=== PATIENT | female | born 1990 | race Caucasian/White ===

== ENCOUNTER → 2017-05-08 08:35 | Outpatient (CLI) | payer OTHER, SELFPAY | PROVIDERS: Family Provider Nurse Practitioner; PCP Nurse Practitioner; Visit Provider Internal Medicine Medical Oncology | DX: D69.6 Thrombocytopenia, unspecified (principal) ==

== ENCOUNTER → 2018-02-18 21:00 | Outpatient (CLI) | payer OTHER, SELFPAY ==
[2018-02-18 21:13] LABS: Absolute Lymphocyte Count 2.36 X10^3/ul (0.83-4.51); Absolute Neutrophil Count 2.2 X10^3/uL (2.0-7.7); Eosinophil# 0.04 X10^3/uL; Eosinophils% 0.8 % (0-5); Hematocrit 43.6 % (37-47); Hemoglobin 14.6 g/dl (12.0-15.0); Lymphocyte # 2.36 X10^3/ul (4.0); Lymphocyte % 47.4 % (19-41); Mean Corp Hgb Conc 33.5 g/gl (32-36); Mean Corpuscular Hgb 27.7 pg (27.0-32.0); Mean Corpuscular Volume 82.6 fL (81-99); Mean Platelet Vol. 10.1 fl (6.2-12.0); Monocyte# 0.37 X10^3/uL; Monocyte% 7.4 % (0-10); Neutrophil % 44.2 % (47-70); POSITIVE COUNT NO; POSITIVE DIFFERENTIAL NO; POSITIVE MORPHOLOGY NO; Platelet Count 226 K/mm3 (150-450); RBC Distribution Width CV 12.6 % (11.6-14.6); RBC Distribution Width SD 37.6 fl (35.1-43.9); Red Blood Count 5.28 M/mm3 (4.2-5.4)
[2018-02-18 21:34] LABS: ALB/GLOB Ratio 1.1 RATIO (0.9-2.4); AST(SGOT) 12 U/L (15-37); Alanine Aminotransfer ALT/SGPT 23 U/L (13-56); Albumin, Serum 4.3 g/dL (3.2-5.0); Alkaline Phosphatase 100 U/L (45-117); Anion Gap 8 (5-15); BUN 14 mg/dL (7-18); BUN/Creat Ratio 18.2 RATIO (10-20); Calcium,Total 9.1 mg/dL (8.5-10.1); Chloride 104 mmol/L (98-107); Cholesterol 220 mg/dL (200); Creatinine, Serum 0.77 mg/dL (0.55-1.02); EST Glomerular Filtration Rate 94 mL/min (>60); Est Glom Filt Rate - Afr Amer 114 mL/min (>60); Free T3 3.3 pg/mL (2.18-3.98); Globulin 3.8 g/dL (2.2-4.2); Glucose 83 mg/dL (74-106); High Density Lipoprotein 39 mg/dL; Potassium 4.6 mmol/L (3.5-5.1); Protein, Total 8.1 g/dL (6.4-8.2); Sodium Level 138 mmol/L (136-145); T4 Free Direct 1.01 ng/dL (0.76-1.46); Thyroid Stim Hormone (TSH) 1.35 uIU/mL (0.358-3.74); Triglycerides 362 mg/dL; Very Low Density Lipoprotein 72 mg/dL (5-40)
== END ==
PROVIDERS: Visit Provider Nurse Practitioner
DX: D69.3 Immune thrombocytopenic purpura (principal); L93.0 Discoid lupus erythematosus
CPT/HCPCS: 80053; 80061; 84439; 84443; 84481; 85025

== ENCOUNTER → 2020-03-14 08:28 | Outpatient (CLI) | payer OTHER, SELFPAY ==
[2020-03-10 20:05] VITALS: BMI 32.9
[2020-03-14 09:30] LABS: Free T3 3.2 pg/mL (2.18-3.98); Magnesium 2.3 mg/dL (1.6-2.6); T4 Free Direct 1.07 ng/dL (0.76-1.46); Thyroid Stim Hormone (TSH) 0.86 uIU/mL (0.358-3.74)
[2020-03-16 14:09] LABS: ANTINUCLEAR ANTIBODIES DIRECT Positive (Negative); Anti-Centromere B Ab <0.2 AI (0.0-0.9); Anti-Chromatin 0.3 AI (0.0-0.9); Anti-Jo <0.2 AI (0.0-0.9); Anti-Scleroderma-70 AB <0.2 AI (0.0-0.9); RNP Ab 0.5 AI (0.0-0.9); SJOGREN'S Anti-SS-A test < 0.2 AI (0.0-0.9); SJOGREN'S Anti-SS-B test < 0.2 AI (0.0-0.9); Smith Ab 0.2 AI (0.0-0.9); Vitamin D 1,25-Dihydroxy 54.7 pg/mL (19.9-79.3)
[2020-03-16 14:38] LABS: Anti-dsDNA Ab 8 IU/mL (0-9)
== END ==
PROVIDERS: PCP Nurse Practitioner; Referring Provider Nurse Practitioner; Visit Provider Nurse Practitioner
DX: L93.0 Discoid lupus erythematosus (principal); D69.3 Immune thrombocytopenic purpura
CPT/HCPCS: 36415; 82652; 83735; 84439; 84443; 84481; 86038; 86225; 86235

== ENCOUNTER → 2024-04-16 | Outpatient (CLI) | payer OTHER, SELFPAY ==
[2024-04-16 07:46] LABS: Absolute Lymphocyte Count 2.78 X10^3/uL (0.83-4.51); Absolute Neutrophil Count 3.7 X10^3/uL (2.0-7.7); Basophil# 0.02 X10^3/uL; Basophil% 0.3 % (0-1); Eosinophil# 0.01 X10^3/uL; Eosinophils% 0.1 % (0-5); Hematocrit 41.7 % (37-47); Hemoglobin 13.2 g/dL (12.0-15.0); Lymphocyte # 2.78 X10^3/ul (0.83-4.51); Lymphocyte % 38.5 % (19-41); Mean Corp Hgb Conc 31.7 g/dL (32-36); Mean Corpuscular Hgb 26.3 pg (27.0-32.0); Mean Corpuscular Volume 83.2 fL (81-99); Mean Platelet Vol. 9.3 fl (6.2-12.0); Monocyte# 0.62 X10^3/uL; Monocyte% 8.6 % (0-10); NRBC Flagged by Analyzer 0 % (0-5); Neutrophil # 3.72 X10^3/uL (2.7-7.7); Neutrophil % 51.5 % (47-70); Platelet Count 238 K/mm3 (150-450); RBC Distribution Width CV 13.4 % (11.6-14.6); RBC Distribution Width SD 40.2 fl (35.1-43.9); Red Blood Count 5.01 M/mm3 (4.2-5.4); White Blood Count 7.2 K/mm3 (4.4-11.0)
[2024-04-16 12:55] LABS: AST(SGOT) 15 U/L (15-37); Alanine Aminotransfer ALT/SGPT 25 U/L (13-56); Albumin, Serum 3.9 g/dL (3.2-5.0); Alkaline Phosphatase 94 U/L (45-117); Anion Gap 8 (5-15); BUN 12 mg/dL (7-18); BUN/Creat Ratio 16.4 RATIO (10-20); Chloride 109 mmol/L (98-107); Creatinine, Serum 0.73 mg/dL (0.55-1.02); EST Glomerular Filtration Rate 96 mL/min (>60); Est Glom Filt Rate - Afr Amer 116 mL/min (>60); Globulin 3.8 g/dL (2.2-4.2); Glucose 100 mg/dL (74-106); Potassium 4.4 mmol/L (3.5-5.1); Protein, Total 7.7 g/dL (6.4-8.2); Rheumatoid Factor < 10.0 IU/mL (<15); Sodium Level 140 mmol/L (136-145); Thyroid Stim Hormone (TSH) 0.823 uIU/mL (0.358-3.740)
[2024-04-19 12:08] LABS: Anti-Centromere B Ab <0.2 AI (0.0-0.9); Anti-Chromatin 0.3 AI (0.0-0.9); Anti-Jo <0.2 AI (0.0-0.9); Anti-Scleroderma-70 AB <0.2 AI (0.0-0.9); Anti-dsDNA Ab 5 IU/mL (0-9); RNP Ab 0.5 AI (0.0-0.9); SJOGREN'S Anti-SS-A test < 0.2 AI (0.0-0.9); SJOGREN'S Anti-SS-B test < 0.2 AI (0.0-0.9); Smith Ab <0.2 AI (0.0-0.9)
== END | disposition home or self-care (01) ==
LOC: LAB 07:24
PROVIDERS: PCP Nurse Practitioner; Referring Provider Nurse Practitioner; Visit Provider Nurse Practitioner
DX: I73.00 Raynaud's syndrome without gangrene (principal); M32.14 Glomerular disease in systemic lupus erythematosus
CPT/HCPCS: 80053; 84443; 85025; 86225; 86235; 86431

== ENCOUNTER 2024-08-18 09:30 | Outpatient (RCR) | payer OTHER, SELFPAY ==
--- NOTE | 2024-07-21 17:02 | HP.PTEVAL ---
Patient's Visit Information Visit Information Visit Information: RC DICKERSON is a 34 year old F referred to Physical Therapy by Dr. Aleksandr Araujo DPM with a diagnosis of R ATFL sprain. Date of Evaluation: 07/21/24 Physical Therapist: Wilder Gibbons DPT, OCS, CSCS Visit Plan Frequency: 2x /Week Duration: 4-6 Weeks Plan: 2x/week for 3-6 weeks: IE HEP with pics: 4 way ankle with OTB 3x10 adn SLS 2 min each. Brace with ambulation and ice if sore. Please treat with: CFM R ATFL, progression of achilles streetch and WB proprioception and strength to HEP with pics for R ankle and B ankle. ice massage as needed. STM rollout gastroc and soleus and PF STM R. Subjective Subjective: R ankle pain. Starting last April to doctor but pain prior for over a year. Worse on vacation in March walking on beach. Then turned ankle in April turned R ankle in [place]. Lots of walking and tendonitis and PFitis possible. Stepped off curb and rolled it the next day and walked on it for 4 days. 9/10 Laterally at time. Put in boot when she got back. had night splint which helped then doctor put her in boot for 6 weeks which helped tremendously. That came off early June 3 weeks ago. Then brace for two weeks. Saw doctor last Friday and it was hurting again b/c she was using it more. Gave HEP of DF stretch and ankle ROM. Exercises helped a little bit and gave voltarin to use. Pain this week mostly 1/10, worse if on it alot makes it worse. [facility] [place] to hospital can cause some pain. Walking dog in [employer] class can hurt at 4/10. That pain lingers a little bit at times. Still has some heel pain. Sleep is OK. Work is normal but would not stand on chair. Basic ADLs a polly are good. No hobbies this time of year. Stairs at home are not great to basement, avoided them when in boot. Pain R lateral ankle: Pain Intensity (Out of 10): 2 Pain Intensity Range: 0 and 5 Comment: am and pm worst Objective Objective: Walks in today with brace on R ankle without antalgia. 2/10 pain. Able to toe walk adn heel walk with slight discomfort in lateral ankle and R heel. + talar tilt on R, hypermobile throughout B ankles and feet adn hyperextension noticed in knees B. AROM R khoa 5 DF vs 7 on L, PF 60 R and L, eversion 22 B, inversion 44 B. Pain with R inversion in lateral ankle. Tender to palpation R ATFL area, not really into peroneals, slight tenderness insertion achilles R and into medial plantar surface on clacaneus. strength is 4/5 R ankle inv and eversion with pain on eversion and eversion R lateral, 4+ Df and 4- PF R with pain with heel raise. Steps are recirpocal without rail but painful R lateral with descending onto R and pushing up off right. sensation B LE WNL to gross light touch. Arch is unremarkable today. SLS evc 10+ seconds L and R but much more sway on R. Balance/Special Test Scores Lower Extremity Functional Score: 59 Goals Goal 1:: walk community without brace without pain Goal Time Frame: 4-6 Weeks Goal 2:: I( appropriate HEP to limit future problems Goal Time Frame: 4-6 Weeks Goal 3:: steps reciprocal without discomfort. Goal Time Frame: 4-6 Weeks Goal 4:: LEFS score 65 Goal Time Frame: 4-6 Weeks Rehabilitation Potential Physical Therapy Diagnosis: Pain and weakness and diminished proprioception in R ankle causing discomfort in function. Rehabilitation Potential: Fair Anticipated Interventions Patient/Client Instruction: Educate patient on: Condition and Plan of Care For the Purpose of:: To decrease pain, To decrease swelling/inflammation, To improve nutrient delivery to tissue and To improve muscle performance and motor function Therapeutic Exercise to Include: Strength training, Balance training and Gait and locomotor training Comment: proprioception For the Purpose of:: To decrease pain, To improve nutrient delivery to tissue, To improve muscle performance and motor function, To increase tolerance to activity/condition/position, To improve gait and locomotor functions and To improve health of tissue Manual Therapy Techniques to Include: Mobilization and Soft tissue mobilization For the Purpose of:: To decrease swelling/inflammation, To increase ROM, To improve nutrient delivery to tissue, To improve muscle performance and motor function, To increase tolerance to activity/condition/position and To improve gait and locomotor functions Cryotherapy (ice pack, ice massage): Yes For the Purpose of:: To decrease swelling/inflammation Text: Thank you for the opportunity to evaluate your patient. For Medicare and Medicare HMO plans, please review the plan of care and approve it. It will need to be FAXED BACK to us at [phone] for Medicare purposes. For Medicare only, by signing this I certify the plan of care. Please let me know if there are questions or concerns regarding this plan of care. Physician Signature: Date:
--- NOTE | 2024-08-18 09:50 | HP.PTDCSUM ---
Discharge Summary D/C summary: It has been my pleasure to treat RC DICKERSON referred by Dr. Aleksandr Araujo DPM, with the diagnosis of R ATFL sprain for a total of 8 visit(s). Discharge Date: 08/18/24 Please see the following information for a summary of their discharge status. Subjective Subjective: Not wearing brace except for long walk days. If overdoes it will gt a little sore but not bad. This weel 1-08/02 with a lot of walking. Gone with sitting and sleeping well. Activities are normal. Wears ankle brace for [employer] class. To Doctor 08/30. HEP: daily. Pain R lateral ankle: Pain Intensity (Out of 10): 1 Overall Improvement % Improvement: 60 Objective Objective/Function: walking without antalgia today steps rciprocally today without pain or railing, using forefoot. AROM is symmetircal adn WFL with just some slight streteching discomfort laterally with inversion end range. strength is 4+/5 in all directions. Goals Goal 1:: walk community without brace without pain Goal Progress: Goal Met Goal 2:: I( appropriate HEP to limit future problems Goal Progress: Goal Met Goal 3:: steps reciprocal without discomfort. Goal Progress: Goal Met Goal 4:: LEFS score 65 Goal Progress: Goal Met Plan Plan: d/c to HEP D/C Information Discharge Comments: to doctor in two weeks. Doing well with slow steady improvement and will continue via HEP. d/c sentence: If there are questions or concerns regarding this patient's physical therapy, please feel free to call me at [phone]. Thank you for the referral of this patient. Sincerely, Wilder Gibbons, DPT, OCS, CSCS Balance/Gait/Functional tests Balance/Special Test Scores Lower Extremity Functional Score: 69 Improvement % Improvement: 60
== END 2024-08-18 19:00 | disposition home or self-care (01) ==
LOC: PT 09:30
PROVIDERS: PCP Nurse Practitioner; Referring Provider Podiatrist Foot & Ankle Surgery; Visit Provider Podiatrist Foot & Ankle Surgery
DX: S93.431D Sprain of tibiofibular ligament of right ankle, subsequent encounter (principal)
CPT/HCPCS: 97110; 97140; 97161; 97164; 97530

== ENCOUNTER → 2024-09-13 | Outpatient (CLI) | payer OTHER, SELFPAY ==
--- NOTE | 2024-09-13 14:00 | MRI_ITS ---
EXAM: Noncontrast MRI of the right ankle. CLINICAL HISTORY: Lateral right ankle/heel pain after injury April 2024. Swelling. COMPARISON: No relevant prior studies. TECHNIQUE: Multi planar, multisequence MRI images of the right ankle were obtained. FINDINGS: The distal Achilles tendon and proximal plantar fascia are intact. Marrow signal of the included osseous structures of the mid and hindfoot structures right foot are intact. Fat signal is maintained in the sinus tarsi. The distal tibia and fibula are intact. Ankle mortise is within normal limits. No osteochondral lesion of the talar dome. The major flexor and extensor tendons are intact. No soft tissue mass or drainable fluid collection of the right foot. The anterior and posterior distal tibial-fibular syndesmotic ligaments, the major components of the deltoid ligament, as well as the calcaneofibular ligament are intact. An intact anterior talofibular ligament is not clearly demonstrated. MRI/Lower Ext Joint Only (Routine) IMPRESSION: No acute bony abnormality of the right ankle. The major flexor and extensor tendons are intact. An intact anterior talofibular ligament is not clearly demonstrated and may be chronically torn. The remaining major ligamentous structures of the right ankle are intact. Reading Location: [facility]
== END | disposition home or self-care (01) ==
PROVIDERS: PCP Nurse Practitioner; Referring Provider Podiatrist Foot & Ankle Surgery; Visit Provider Podiatrist Foot & Ankle Surgery
DX: M79.671 Pain in right foot (principal); S93.491A Sprain of other ligament of right ankle, initial encounter
CPT/HCPCS: 73721

== ENCOUNTER → 2024-10-15 | Outpatient (CLI) | payer OTHER, SELFPAY ==
[2024-10-15 18:44] LABS: Hemoglobin A1c 5.3 % (<=5.6)
[2024-10-19 14:08] LABS: Anti-Centromere B Ab <0.2 AI (0.0-0.9); Anti-Chromatin <0.2 AI (0.0-0.9); Anti-Jo <0.2 AI (0.0-0.9); Anti-Scleroderma-70 AB <0.2 AI (0.0-0.9); Anti-dsDNA Ab 3 IU/mL (0-9); RNP Ab 0.5 AI (0.0-0.9); SJOGREN'S Anti-SS-A test 0.2 AI (0.0-0.9); SJOGREN'S Anti-SS-B test < 0.2 AI (0.0-0.9); Smith Ab <0.2 AI (0.0-0.9); Vitamin D 1,25-Dihydroxy 48.5 pg/mL (24.8-81.5)
== END | disposition home or self-care (01) ==
LOC: LAB 15:40
PROVIDERS: PCP Nurse Practitioner; Referring Provider Nurse Practitioner; Visit Provider Nurse Practitioner
DX: R73.9 Hyperglycemia, unspecified (principal); E55.9 Vitamin D deficiency, unspecified
CPT/HCPCS: 36415; 82652; 83036; 86225; 86235

== ENCOUNTER 2024-11-05 11:37 | Day surgery (SDC) | payer OTHER, SELFPAY ==
--- NOTE | 2024-10-22 12:09 | PAT.ANESEVAL ---
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 When Was Last Pacemaker Check QUESTION #4 FULL TEXT: You/Your Family Experience fever (hyperthermia) with Anesthesia Last Oral Intake Last Oral intake: Last Oral Intake NPO since Meds taken in AM with sips of water? 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 Female Yes 10/22/24 10:56 HX of Motion Sickness Yes 10/22/24 10:56 HX of N/V After Surgery No 10/22/24 10:56 Non-Smoker Yes 10/22/24 10:56 Duration of Surgery greater No 10/22/24 10:56 than 60 minutes Number of Risk Factors 3 10/22/24 10:56 PONV Score Moderate Risk 10/22/24 10:56 Height & Weight Height & Weight: Anesthesia: Height & Weight Height 5 ft 04/20/24 13:21 Respiratory Assessment Respiratory Assessment - battery installer: Respiratory Tract Infection Hx - battery installer Hx Respiratory Tract Infection No 10/22/24 10:56 STOP Sleep Apnea STOP Sleep Apnea - battery installer: STOP Sleep Apnea - battery installer Hx Hypertension No 10/22/24 10:56 Hx Sleep Apnea No 10/22/24 10:56 CPAP BIPAP Do you snore loudly (louder No 10/22/24 10:56 than talking or can be heard Do you often feel tired/ No 10/22/24 10:56 fatigued/ sleepy during daytime? Has anyone observed you stop No 10/22/24 10:56 breathing during sleep? STOP Results Negative 10/22/24 10:56 QUESTION #5 FULL TEXT : Do you snore loudly (louder than talking or can be heard through closed doors)? 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 Specify any problems Hx of Preganancy in last 3 No 10/22/24 10:56 Months Nurse Filling Out Transfusion JZOLLTERI 10/22/24 10:56 & Questions: Date: 10/22/24 10/22/24 10:56 Time: 10:58 10/22/24 10:56 Patient unable to answer at this time (ie. confused, unrespo /Reproduction History /Reproductive History - battery installer: /Reproductive Hx- battery installer Hx Now No 10/22/24 10:56 Gestational Age (in weeks): EDC: Hx Hx Para Hx Section SAB No 10/22/24 10:56 [facility] Medical History (Updated 10/22/24 @ 10:56 by Aleksandra Tavera) Wears contact lenses Wears glasses Non-smoker Hyperlipidemia Right foot sprain Right ankle sprain History of shingles r shoulder surgy 2-3 YEARS AGO low platelet count kidney biopsy or DX Raynauds disease Insomnia Lupus nephritis Systemic lupus Home Medications ?Medication ?Instructions ?Recorded ?Last Taken ?Type cholecalciferol (vitamin D3) 125 1 unit PO DAILY 07/11/15 Unknown History mcg (5,000 unit) capsule amitriptyline 10 mg tablet 10 mg PO QHS #90 tabs 04/19/24 Unknown Rx hydroxychloroquine 200 mg tablet 200 mg PO BID #135 tabs 04/19/24 Unknown Rx (Plaquenil) mycophenolate mofetil 500 mg 500 mg PO BID #180 tabs 04/19/24 Unknown Rx tablet (CellCept) rosuvastatin 5 mg tablet 5 mg PO DAILY #90 tabs 04/19/24 Unknown Rx cetirizine 10 mg tablet (24Hour 10 mg PO DAILY PRN allergy symptoms 10/22/24 Unknown History Allergy) Allergy/AdvReac Type Severity Reaction Status Date / Time amoxicillin (Amoxicillin) Allergy Rash Verified 10/22/24 10:48 omeprazole magnesium (From Allergy Angioedema Verified 10/22/24 10:48 Prilosec) Family History Other Asthma Cancer Diabetes Fatty liver Heart disease High cholesterol Hypertension Kidney disease Lung cancer Skin cancer Thyroid disorder Social History Smoking Status: Never smoker alcohol intake: current substance use type: does not use Audit: Pertinent Findings Pertinent Findings EKG Perinent findings: 07/18/2015. Sinus rhythm 79 bpm. First-degree AV block. Recommendation Anesthesia Recommendation Anesthesia recommendation: OPTIMIZED for anesthesia
[2024-11-05] VITALS (12 sets, daily range): BP systolic 108–132; BP diastolic 58–92; PULSE 74–102; RESP 16–20; TEMP 36.2–36.8; O2SAT 98–100; BMI 34.0
--- NOTE | 2024-11-05 12:18 | PRE.ANES_ITS ---
ASA Classification* ASA Classification ASA Classification: 2 Assessment & Plan Anesthesia* Anesthesia Assessment Anesthesia Assessment: Discussed sedation and/or anesthesia options, risks, benefits, and alternatives with patient/parents/legal guardian/POA. Questions invited. The patient/parents/legal guardian/POA seems to understand and agrees to proceed with anesthesia plan. Reviewed the physical assessment, medical history, allergy history and patient home medications list prior to surgery/procedure/anesthetic and documented any changes. Performed airway and anesthesia risk assessments. Anesthesia Type Anesthesia Type: General (keep patient warm, lube eyes) and Block Anesthesia Focused Assessment* Temperature: 98 F Pulse Rate: 78 Blood Pressure: 116/81 Respiratory Rate: 16 Pulse Ox: 98 Airway Assessment Mouth opens: >3 cm Mallampati Score: II Focused Labs Anesthesia Preop lab: CBC WBC 7.2 K/mm3 (4.4-11.0) 04/16/24 07:33 04/16/24 RBC 5.01 M/mm3 (4.2-5.4) 04/16/24 07:33 04/16/24 Hgb 13.2 g/dL (12.0-15.0) 04/16/24 07:33 04/16/24 Hct 41.7 % (37-47) 04/16/24 07:33 04/16/24 Plt Count 238 K/mm3 (150-450) 04/16/24 07:33 04/16/24 CHEMISTRY Potassium 4.4 mmol/L (3.5-5.1) 04/16/24 07:33 04/16/24 Sodium 140 mmol/L (136-145) 04/16/24 07:33 04/16/24 Magnesium 2.3 mg/dL (1.6-2.6) 03/14/20 08:35 03/14/20 Phosphorus 3.4 mg/dL (2.5-4.9) 04/16/24 07:32 04/16/24 BUN 12 mg/dL (7-18) 04/16/24 07:33 04/16/24 Creatinine 0.73 mg/dL (0.55-1.02) 04/16/24 07:33 04/16/24 Glucose 100 mg/dL (74-106) 04/16/24 07:33 04/16/24 TSH 0.823 uIU/mL (0.358-3.740) 04/16/24 07:33 1011/13 COAG PT 12.4 SECONDS (11.7-14.9) 04/14/14 08:08 Urine Test Negative Negative 07/18/15 06:15 07/18/15 Pre-Assessment Diagnosis/Proposed Procedure Planned Operative Procedure(s): (R) Right ankle harvest of calcaneal bone marrow aspirate concentrate, Arthroscopy with extensive debridement and Anesthesia History 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 When Was Last Pacemaker Check QUESTION #4 FULL TEXT: You/Your Family Experience fever (hyperthermia) with Anesthesia Last Oral Intake Last Oral intake: Last Oral Intake NPO since 06:00 11/05/24 12:06 Meds taken in AM with sips of Yes 11/05/24 12:06 water? 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 Female Yes 10/22/24 10:56 HX of Motion Sickness Yes 10/22/24 10:56 HX of N/V After Surgery No 10/22/24 10:56 Non-Smoker Yes 10/22/24 10:56 Duration of Surgery greater No 10/22/24 10:56 than 60 minutes Number of Risk Factors 3 10/22/24 10:56 PONV Score Moderate Risk 10/22/24 10:56 Height & Weight Height & Weight: Anesthesia: Height & Weight Height 5 ft 11/05/24 12:06 Weight: 79 kg 11/05/24 12:06 Body Mass Index (BMI) 34.0 11/05/24 12:06 Respiratory Assessment Respiratory Assessment - oil filters inspector: Respiratory Tract Infection Hx - oil filters inspector Hx Respiratory Tract Infection No 10/22/24 10:56 STOP Sleep Apnea STOP Sleep Apnea - oil filters inspector: STOP Sleep Apnea - oil filters inspector Hx Hypertension No 10/22/24 10:56 Hx Sleep Apnea No 10/22/24 10:56 CPAP BIPAP Do you snore loudly (louder No 10/22/24 10:56 than talking or can be heard Do you often feel tired/ No 10/22/24 10:56 fatigued/ sleepy during daytime? Has anyone observed you stop No 10/22/24 10:56 breathing during sleep? STOP Results Negative 10/22/24 10:56 QUESTION #5 FULL TEXT : Do you snore loudly (louder than talking or can be heard through closed doors)? 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 Specify any problems Hx of Preganancy in last 3 No 10/22/24 10:56 Months Nurse Filling Out Transfusion JZOLLTERI 10/22/24 10:56 & Questions: Date: 10/22/24 10/22/24 10:56 Time: 10:58 10/22/24 10:56 Patient unable to answer at this time (ie. confused, unrespo /Reproduction History /Reproductive History - oil filters inspector: /Reproductive Hx- oil filters inspector Hx Now No 10/22/24 10:56 Gestational Age (in weeks): EDC: Hx Hx Para Hx Section SAB No 10/22/24 10:56 Active Medications Active Medications: Current Medications Generic Name Dose Route Start Last Admin Trade Name Freq PRN Reason Stop Dose Admin Acetaminophen 1,000 mg 11/05/24 13:45 Acetaminophen 500 Mg Tablet PO 11/05/24 13:46 PREOP ONE Gabapentin 600 mg 11/05/24 13:45 Gabapentin 600 Mg Tablet PO 11/05/24 13:46 PREOP ONE Clindamycin Phosphate 900 mg in 50 mls @ 75 mls/hr 11/05/24 13:45 Cleocin IV 11/05/24 14:24 INTRAOP ONE Insulin Human Lispro 1 - 6 unit 11/05/24 13:45 Insulin Lispro 100 Unit/Ml Insuln.Pen SC 11/05/24 17:45 Q4H PRN PRN BG>/= 180, SEE PROTOCOL Protocol PFSH Medical History Wears contact lenses Wears glasses Non-smoker Hyperlipidemia Right foot sprain Right ankle sprain History of shingles r shoulder surgy 2-3 YEARS AGO low platelet count kidney biopsy or DX Raynauds disease Insomnia Lupus nephritis Systemic lupus Home Medications ?Medication ?Instructions ?Recorded ?Last Taken ?Type cholecalciferol (vitamin D3) 125 1 unit PO DAILY 07/11 Unknown History mcg (5,000 unit) capsule amitriptyline 10 mg tablet 10 mg PO QHS #90 tabs 04/19 Unknown Rx hydroxychloroquine 200 mg tablet 200 mg PO BID #135 ta bs 04/19/24 Unknown Rx (Plaquenil) mycophenolate mofetil 500 mg 500 mg PO BID #180 tabs 1 11/05/24 06:00 Rx tablet (CellCept) rosuvastatin 5 mg tablet 5 mg PO DAILY #90 tabs 04/1911/05/24 06:00 Rx cetirizine 10 mg tablet (24Hour 10 mg PO DAILY PRN all ergy symptoms 10/22/24 Unknown History Allergy) Allergy/AdvReac Type Severity Reaction Status Date / Time amoxicillin (Amoxicillin) Allergy Rash Verified 11/05/24 12:01 omeprazole magnesium (From Allergy Angioedema Verified 11/05/24 12:01 Prilosec) Family History Other Asthma Cancer Diabetes Fatty liver Heart disease High cholesterol Hypertension Kidney disease Lung cancer Skin cancer Thyroid disorder Social History Smoking Status: Never smoker alcohol intake: current substance use type: does not use Review of Systems (Anesthesia) ROS Narrative System reviewed and no additional complaints, except as documented.
[2024-11-05] MEDS: Acetaminophen 500 MG Tablet 1000 MG PO (12:32)
[2024-11-05] MEDS: Gabapentin 600 MG Tablet PO (12:33)
[2024-11-05] MEDS: Lactated Ringers 1,000 ML 15 ML IV (12:35)
[2024-11-05 13:01] LABS: Internal QC Validated? YES +Cl - CLEAR BKGD
[2024-11-05 13:02] LABS: Pregnancy, Urine Negative Negative
[2024-11-05 13:08] LABS: Bedside Glucose 86 mg/dL (74-106)
[2024-11-05 13:23] LABS: Magnesium 2.1 mg/dL (1.5-2.2)
[2024-11-05] MEDS: Magnesium 1 GM over 15 mins IV (13:35)
--- NOTE | 2024-11-05 13:42 | PCM.OPRPT ---
Problems Associated Problem List Diagnoses (1) Sprain of other ligament of right ankle, initial encounter: (2) Pain in right leg: Operative Report (Standard) Operative Information Date of Procedure: 11/05/24 Pre-Operative Diagnosis: 1. ATFL sprain, right lower extremity 2. Pain, left leg Post-Operative Diagnosis: Same as preoperative diagnosis Surgery/Procedure Performed: Procedure #1: Olivet of calcaneal bone marrow aspirate concentrate, right lower extremity Procedure #2: Arthroscopy with excessive debridement, right lower extremity Procedure #3: Repair of ATFL, right lower extremity director dental services: Yes [place] Nurse: Shannon Nelson Tasks completed by bilingual medical assistant: Closing Additional advertising assistant manager?: No Type of Anesthesia: General/Regional RN Documented Start/Stop Times: Operation Date: 11/05/24 13:45 Case Time Into Pre-Op 11/05/24 11:53 Anesthesia Start 11/05/24 14:15 Into Room 11/05/24 14:15 Procedure Start 11/05/24 14:30 Procedure End 11/05/24 15:44 Procedure Start Time: 14:30 Procedure Stop Time: 15:44 Select all DRAINS/GRAFTS/IMPLANTS that apply: Tissue Tissue details: 1 cc Via Flow and Implanted device Implanted device details: Citra fix anchors, x2 3.5mm Special Medications: Per anesthesia Estimated Blood Loss: 15 cc Fluids Replaced: Per anesthesia Specimen collected: No Description of surgery: Indications For Operation: Ms. Us is a 34-year-old female who was admitted to [facility] for right lower extremity surgery consisting of Olivet of bone marrow aspirate concentrate, ankle scope and ATFL repair. Patient is well-known to my office and has been treated for an ankle sprain for the past 6 months. Due to the patient failing conservative treatment consisting of nonsteroidal anti-inflammatory, taping, shoe gear modification, bracing, cam boot and physical therapy we move forward with an MRI that showed evidence of a ATFL tear to the right lower extremity. Due to the chronic pain and history of ankle instability we discussed surgical intervention as followed. Patient was understanding all risk and benefits. She had surgical consultation in the office. Chart review consent signed. Due to nature of the right ankle instability and chronic pain it was deemed necessary at this time to move forward with the above procedure to help decrease the patient's chronic pain to right lower extremity and get her weightbearing without issues. The nature of the problem, anticipated procedures, postop recovery/convalences and risk/complications include but not limited to infection, wound healing complications, digital amputation, hypertrophic scarring, numbness, tingling, chronic pain, CRPS, over and under correction, recurrence of deformity, DVT and or PE and the need for further surgery have been discussed in great detail with the patient. All questions have been answered to the patient's satisfaction. There are no guarantees given as to the outcome of the procedure. Description of Procedure: Under mild sedation, the patient was brought into the operating room and placed on the operating table in supine position. Once the patient was under general anesthesia with laryngeal mask airway, the right lower extremity was blocked using approximately 10 cc 0.5% Marcaine plain to the saphenous nerve. Patient did receive a popliteal block by anesthesia prior to the procedure. Please see anesthesia notes for further detail. Next, a well-padded thigh tourniquet was applied to the right lower extremity. Next, the right lower extremity was prepped and draped in normal aseptic manner. Next, a timeout was then undertaken verifying the correct patient, extremity, visibility of preoperative markings, availability of the equipment. Next, attention was directed to the right lower extremity. Using a foreign Esmarch, right lower extremity was exsanguinated and elevated to 60 degrees for 1 minute Procedure #1: Olivet of calcaneal bone marrow aspirate concentrate, right lower extremity Potential injury to the lateral aspect of the right lower extremity calcaneus. Using a Jamshidi needle and mallet the needle was inserted to the lateral portion of the calcaneal bone without incident. Olivet of calcaneal bone marrow aspirate was performed using x 230 cc syringes without incident. This is passed the back table to be used later on in the case. He incision area was flushed and dressed with 4-0 nylon in simple erupted suture technique. Procedure #2: Arthroscopy with excessive debridement, right lower extremity Next, attention was directed to the right ankle. Once the anterior tibial tendon was identified as well as the great saphenous vein the anterior medial portal was identified and marked, using a #11 blade a stab incision was made no larger than 5 mm followed by blunt dissection with curved hemostat to level of the ankle joint. Using a trocar and obturator the anterior medial portal was established. Using the Arthrex 4.0 mm 30 degree scope the lateral portal was established with illumination guidance and using a #11 blade a stab incision was made followed by gentle dissection until the anterior lateral border of the ankle was established. Care was also taken to identify the subcutaneous nerves. Exploration of the ankle showed no evidence of OCD's to the lateral medial side of the talus. There showed evidence of some degenerative changes along the talus on the medial shoulder. There was evidence of synovitis throughout the ankle. Next, excessive debridement using the Arthrex shaver was done throughout the ankle cleaning up all the synovitis, then followed a thorough check at all 19 spots of the right ankle were identified. After extensive debridement was completed the area was flushed with copious normal saline the suction from the shaver was used to evacuate all free floating material. All incisions on the medial and lateral side of the ankle were flushed with copious normal saline. The right lower extremities were cleaned and patted dry. Both incisions were closed with large big bite sutures with 4-0 nylon in horizontal mattress suture technique. Procedure #3: Repair of ATFL, right lower extremity Next attention was directed to the right lower extremity to level of the fibula. Using a sterile skin marker the incision was marked out to the anterior aspect of the fibula as well as to the distal aspect. Using a #15 blade a full-thickness tissue down to subcutaneous tissue was performed with is in it. All bleeders were ligated as necessary. Continued blunt dissection was carried down to the anterior border of the fibula. Once identified using a Sanborn a pocket was made distally and advanced superiorly to allow a safe cutting edge for the #15 blade. Once the incision was made the periosteum and capsule were flapped to expose the ATFL and the lateral side of the talus. The distal fibula was roughed up with rongeur and hand rasp. The area was flushed with cold roe normal saline. Next using times two 3.5 mm suture fix anchors and large scalp fluoroscopy, the anchors were placed 5 mm from the fibular summit and 1 cm proximal using the manufactures technique with the rep in the room. Next, the ATFL was repaired with pants over vest technique and hand tied in place. Next reinforcement of the capsule and soft tissue was performed with over and over suture technique and hand tied in place. Next the proximal anchor needles were used to apply the Valladares modification with the inferior retinaculum with pants over vest technique. Next, reinforcement of the capsule and soft tissue was performed with open over suture technique and hand tied in place. Again the incision was flushed with copious normal saline. The subcutaneous layer was reapproximated closed using 2-0 Vicryl and running locking suture technique. The right thigh tourniquet was deflated and reperfusion was noticed instantly to the right lower extremity. All bleeders were cauterized and ligated as necessary. The skin was reapproximated and closed using 3-0 nylon in horizontal mattress suture technique. Next, bone marrow aspirate concentrate was injected at the level of the ankle as well as the ATFL repair. 1 cc of via flow was administered to the incisions to decrease scar tissue and help with healing. The right lower extremities were cleaned and patted dry. PPP was sprayed to all incisions followed by application of Betadine soaked Adaptic, dry sterile dressing and double or Palmer AO splint was applied to right lower extremity at 90 degrees fashion. The patient tolerated the procedure and anesthesia well and apparent satisfactory condition and was transported to the PACU for further monitoring prior to discharge home. Vital signs stable and vascular status intact to all digits bilateral. Post Operative Plan: Weightbearing: Nonweightbearing to right lower extremity with assistive knee scooter and crutches. Full weightbearing left lower extremity. Antibiotics: 900 mg clindamycin through the IV DVT Prophylaxis: 81 mg aspirin Pineda: None Dressing: PPP, Betadine soaked Adaptic, dry sterile dressing double layer Palmer 90 degree AO splint right lower extremity. X-Rays: Post-operative films taken on the operating room. Pain Medication: Oxycodone 5 mg, Tylenol 1000 mg Follow-up: Patient will follow-up 1 week postop in private office with Dr. Araujo. Surgical Findings: 1. Evidence of synovitis within the ankle and cleaned with excessive debridement and ankle scope. 2. Evidence of some degenerative changes appreciated to the medial talar shoulder. 3. No evidence of OCD's that can be seen in the medial lateral side of the talar dome. Complications Complications: No Admit VTE Documentation VTE Present on Admission: No VTE Mechan Device Prophylaxis: SCD's VTE Pharm Prophylaxis ordered?: Yes
[2024-11-05] MEDS: Clindamycin 900 MG/50 ML BAG 75 MG IV (14:25)
[2024-11-05] MEDS: Lidocaine 1% /Epi 1:100 (20ml) 20 ML Vial (14:29)
--- NOTE | 2024-11-05 15:00 | RAD_ITS ---
PROCEDURE: Intraoperative fluoroscopic services. REASON FOR EXAM: ERAS, RIGHT ANKLE HARVEST OF CALCANEAL BONE MARROW, ARTHROSCOPY TECHNIQUE: Intraoperative fluoroscopic services provided. Fluoroscopy: 19.5 seconds. 0.61 mGy. COMPARISON: None FINDINGS: Intraoperative fluoroscopic services provided for harvest of calcaneal bone marrow. RAD/Ankle 2 Views IMPRESSION: Intraoperative fluoroscopic services provided for harvest of calcaneal bone mar row. Reading Location: [facility]
[2024-11-05] MEDS: Calcium Chloride 1 GM/10 ML Syringe (15:13)
[2024-11-05] MEDS: Heparin 10,000 UNITS/10 ML Vial 10000 UNITS (15:13)
[2024-11-05] MEDS: Thrombin 5,000 IU Kit (PSA) 5,000 IU Vial 5000 IU TOPICAL (15:14)
[2024-11-05] MEDS: Bupivacaine 0.5% PF 10 ML VIAL (15:31)
--- NOTE | 2024-11-05 15:52 | PCM.POST.ANE ---
Anesthesia: Postop Eval I Current Vital Signs Temperature: 97.1 F Pulse Rate: 98 Blood Pressure: 112/62 Respiratory Rate: 20 Pulse Ox: 98 Oxygen Delivery Method: Room Air Assessment Airway patent: Yes Spontaneous unlabored respirations: Yes Mental status: Awake and Calm nausea: No Vomiting: No Anesthesia Complication: No Fluid Hydration Crystalloid volume administer (ml): 1,400 Total IV fluid infused: 1,400 Progress Note Anesthesia document: Postop Eval 1 completed: Yes
--- NOTE | 2024-11-05 16:49 | POSTOPAN2_ITS ---
Anesthesia Postop Eval I Sum Postop Eval Completion status Anesthesia document: Postop Eval 1 completed: Yes Anesthesia Postop Eval I Summary Anesthesia Postop Eval I Summary: Anesthesia Postop Eval I: Assessment Summary Airway patent Yes 11/05/24 15:53 HEAD OF LOSS PREVENTION.[email or web address] Spontaneous unlabored Yes 11/05/24 15:53 HEAD OF LOSS PREVENTION.PKEL respirations Mental status Awake,Calm 11/05/24 15:53 HEAD OF LOSS PREVENTION.[email or web address] nausea No 11/05/24 15:53 HEAD OF LOSS PREVENTION.[email or web address] Vomiting No 11/05/24 15:53 HEAD OF LOSS PREVENTION.PKEL Anesthesia Postop Eval I: Fluid Summary Crystalloid volume administer 1,400 11/05/24 15:53 HEAD OF LOSS PREVENTION.PKEL (ml) Colloids volume administered ( ml) Blood Product volume administered (ml) Total IV fluid infused 1,400 11/05/24 15:53 HEAD OF LOSS PREVENTION.PKEL Anesthesia Postop Eval I: Summary Notes Anesthesia Complication No 11/05/24 15:53 HEAD OF LOSS PREVENTION.PKEL Anesthesia Complication Comment: Post-operative progress note Anesthesia: Postop Eval II Evaluation Mental status: Awake Pain Level: 0 nausea: No Vomiting: No
--- NOTE | 2024-11-05 16:49 | PCM.POSTANE2 ---
Anesthesia Postop Eval I Sum Postop Eval Completion status Anesthesia document: Postop Eval 1 completed: Yes Anesthesia Postop Eval I Summary Anesthesia Postop Eval I Summary: Anesthesia Postop Eval I: Assessment Summary Airway patent Yes 11/05/24 15:53 ACCOUNTS RECEIVABLE REPRESENTATIVE.PKEL Spontaneous unlabored Yes 11/05/24 15:53 ACCOUNTS RECEIVABLE REPRESENTATIVE.PKEL respirations Mental status Awake,Calm 11/05/24 15:53 ACCOUNTS RECEIVABLE REPRESENTATIVE.PKEL nausea No 11/05/24 15:53 ACCOUNTS RECEIVABLE REPRESENTATIVE.PKEL Vomiting No 11/05/24 15:53 ACCOUNTS RECEIVABLE REPRESENTATIVE.PKEL Anesthesia Postop Eval I: Fluid Summary Crystalloid volume administer 1,400 11/05/24 15:53 ACCOUNTS RECEIVABLE REPRESENTATIVE.PKEL (ml) Colloids volume administered ( ml) Blood Product volume administered (ml) Total IV fluid infused 1,400 11/05/24 15:53 ACCOUNTS RECEIVABLE REPRESENTATIVE.PKEL Anesthesia Postop Eval I: Summary Notes Anesthesia Complication No 11/05/24 15:53 ACCOUNTS RECEIVABLE REPRESENTATIVE.PKEL Anesthesia Complication Comment: Post-operative progress note Anesthesia: Postop Eval II Evaluation Mental status: Awake Pain Level: 0 nausea: No Vomiting: No
== END 2024-11-05 18:03 | disposition home or self-care (01) ==
LOC: SDC 11:38 → AC 11:42
PROVIDERS: Anesthesiology; Student in an Organized Health Care Education/Training Program; PCP Nurse Practitioner; Referring Provider Podiatrist Foot & Ankle Surgery; Visit Provider Podiatrist Foot & Ankle Surgery
PROC: (CPT 29898; principal; 2024-11-05 13:30)
DX: S93.491A Sprain of other ligament of right ankle, initial encounter (principal); E78.5 Hyperlipidemia, unspecified; Z79.899 Other long term (current) drug therapy; X58.XXXA Exposure to other specified factors, initial encounter
CPT/HCPCS: 29898; 27695; 38232; 01464; 73600; 76000; 81025; 82962; 83735; C1713; J2405; J3475

== ENCOUNTER 2025-06-03 07:00 | Outpatient (RCR) | payer OTHER, SELFPAY ==
--- NOTE | 2025-01-12 15:56 | HP.PTEVAL ---
Patient's Visit Information Visit Information Visit Information: RC DICKERSON is a 34 year old F referred to Physical Therapy by Dr. Aleksandr Araujo DPM with a diagnosis of ATFL Repair 11/05/2024. Date of Evaluation: 01/12/25 Physical Therapist: Stefani Salas DPT Visit Plan Frequency: 2-3x /Week Duration: 4 Weeks Plan: ATFL Repair 11/05/24- Gentle- focus on ROM, strength, flex- functional mobility then progress to lateral movements as able- caution of edema HEP Given IE: Seated HR/TR, SLS, Gastroc Stretch with Towel Subjective Subjective: November 05, 2024-patient reports he repaired the outside tendon- cut the tendon- cleaned it out and put it back together- with a bone graft (ATFL repair). She was non weight bearing for 6-7 weeks and then he put her in a boot for a couple weeks and she was putting some pressure on it. She was put in this brace 2 weeks ago. Last time she saw him she was told its healed, no impact, get moving. Walk the dog- take hikes-swim- just move with caution. He told her the brace will be with her for 6 months. She wears the brace most of the time- if it starts to hurt she will put the boot on. She does not sleep in it. Worst: 6/10 Agg: lots of walking, stairs, uneven ground, or impact (accidental). Eases: ice and elevation- she ices every night. Best: 0/10. The pain is located in the anterior ankle and in the arch and around the ankle. She describes the pain as dull and achy. No radiating pain. Some N/T when it swells up. 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 Wears compression socks daily Sleep: not disturbed. PMHx/Meds: no changes. Objective Objective: Posture: forward head, rounded shoulders- can correct but does not maintain Gait: antalgic- decreased stance on the right LE- poor heel/toe pattern due to lack of ROM and strength HR/TR: HR: decreased by 50%, TR: decreased by 25% SLS: 15 seconds-increased muscle activation Observation: incisions healing well- no s/s of infection- Palpation: tender to light touch-around incisions. ROM: DF: 5 degrees, PF: 30 degrees, Inver: 30 degrees, Ever: 15 degrees Girth: Mets: 21 cm Malls: 24.5 cm Figure 8: 49.0 cm Strength: Core: fair minus, Hip: 4+/5 throughout, Knee: 4+/5, Ankle: PF: 15.6 DF: 27.0, Inv:12.7 Ever: 9.4 Flex: HS: severe, Gastroc: severe, Solues: severe Balance/Special Test Scores Lower Extremity Functional Score: 47 Goals Goal 1:: Patient will be I with HEP and progression Goal Time Frame: 4-6 Weeks Goal 2:: Patient will ambulate >150 feet with a normalized gait pattern Goal Time Frame: 4-6 Weeks Goal 3:: Patient will SLS for 30 sec without LOB Goal Time Frame: 4-6 Weeks Goal 4:: Patient will asc/desc 8 stairs recip with no HR and a normalized pattern Goal Time Frame: 4-6 Weeks Goal 5:: Patient will report 80% improvement Goal Time Frame: 4-6 Weeks Rehabilitation Potential Physical Therapy Diagnosis: Patient presents with hypomobility- she has decreased LE and core strength/stabilization, ROM, proprioception, flex and muscular endurance leading to an abnormal gait pattern. Rehabilitation Potential: Good Anticipated Interventions Patient/Client Instruction: Educate patient on: Benefits of Fitness Program Therapeutic Exercise to Include: Strength training, Endurance training, Balance training, Coordination, Agility training, Body mechanics, Postural training, Flexibilty training, Gait and locomotor training, Neuromotor development, Active ROM and Dynamic Lumbar Stabilization For the Purpose of:: To improve muscle performance and motor function Functional Training to Include: Gait training Manual Therapy Techniques to Include: Soft tissue mobilization TENS: Yes Cryotherapy (ice pack, ice massage): Yes Thermo therapy (hot pack): Yes Ultrasound (thermal/non thermal): No Text: Thank you for the opportunity to evaluate your patient. For Medicare and Medicare HMO plans, please review the plan of care and approve it. It will need to be FAXED BACK to us at [phone] for Medicare purposes. For Medicare only, by signing this I certify the plan of care. Please let me know if there are questions or concerns regarding this plan of care. Physician Signature: Date:
--- NOTE | 2025-02-10 16:35 | HP.PTREVAL ---
Re-Evaluation Intro: Dr. Aleksandr Araujo, YULIET, It has been my pleasure to treat RC DICKERSON over the last 9 visits for R ATFL Repair 11/05/2024. Please see the progress note below for an update on the physical therapy plan of care! Subjective Subjective: I am getting better, but I still cant run or jump at this time. Objective Objective/Function: R ankle pain ranges from 2-3/10 Pt still negotiates stairs with a limp of R LE Pt is able to SLS for greater than 30 sec on R LE Pt can now ambulate greater than 150 feet with a normalized gait pattern ROM: R ankle DF= 15, PF= 55; L ankle DF= 5, PF= 25 degrees MMT: R ankle DF= 19, PF= 31 #F; L ankle DF=49, PF= 65 #F Pt continues to lack functional strength and ROM at this time. Plan Plan Plan: 02/10/25- Focus on R ankle ROM, strneghtneing, balance and proprio, R ankle stretching and mobs, bike, and HEP Balance/Gait/Functional tests Balance/Special Test Scores Lower Extremity Functional Score: 47 Goals Goals Goal 1:: Patient will be I with HEP and progression Goal Time Frame: 4-6 Weeks Goal Progress: Goal Met Goal 2:: Patient will ambulate >150 feet with a normalized gait pattern Goal Time Frame: 4-6 Weeks Goal Progress: Goal Met Goal 3:: Patient will SLS for 30 sec without LOB Goal Time Frame: 4-6 Weeks Goal Progress: Goal Met Goal 4:: Patient will asc/desc 8 stairs recip with no HR and a normalized pattern Goal Time Frame: 4-6 Weeks Goal Progress: Progressing Goal 5:: Patient will report 80% improvement Goal Time Frame: 4-6 Weeks Goal Progress: Progressing Goal 6:: Increase R ankle strength to be 90% equal to L ankle strength to aid with recreational activities. Goal Progress: New goal Anticipated Interventions Anticipated Interventions Patient/Client Instruction: Educate patient on: Benefits of Fitness Program Therapeutic Exercise to Include: Strength training, Endurance training, Balance training, Coordination, Agility training, Body mechanics, Postural training, Flexibilty training, Gait and locomotor training, Neuromotor development, Active ROM and Dynamic Lumbar Stabilization For the Purpose of:: To improve muscle performance and motor function Functional Training to Include: Gait training Manual Therapy Techniques to Include: Soft tissue mobilization TENS: Yes Cryotherapy (ice pack, ice massage): Yes Thermo therapy (hot pack): Yes Ultrasound (thermal/non thermal): No Re-Evaluation Ending Re-evaluation ending: Please do not hesitate to contact me at [phone] by phone or if you have questions or concerns regarding this new plan of care! Sincerely, Huy King, PT, ATC
--- NOTE | 2025-02-10 16:38 | HP.PTREVAL_ITS ---
Re-Evaluation Intro: Dr. Aleksandr Araujo DPM, It has been my pleasure to treat RC DICKERSON over the last 9 visits for R ATFL Repair 11/05/2024. Please see the progress note below for an update on the physical therapy plan of care! Subjective Subjective: I am getting better, but I still cant run or jump at this time. Objective Objective/Function: R ankle pain ranges from 2-3/10 Pt still negotiates stairs with a limp of R LE Pt is able to SLS for greater than 30 sec on R LE Pt can now ambulate greater than 150 feet with a normalized gait pattern ROM: R ankle DF= 15, PF= 55; L ankle DF= 5, PF= 25 degrees MMT: R ankle DF= 19, PF= 31 #F; L ankle DF=49, PF= 65 #F Pt continues to lack functional strength and ROM at this time. Plan Plan Plan: 02/10/25- Focus on R ankle ROM, strneghtneing, balance and proprio, R ankle stretching and mobs, bike, and HEP Balance/Gait/Functional tests Balance/Special Test Scores Lower Extremity Functional Score: 47 Goals Goals Goal 1:: Patient will be I with HEP and progression Goal Time Frame: 4-6 Weeks Goal Progress: Goal Met Goal 2:: Patient will ambulate >150 feet with a normalized gait pattern Goal Time Frame: 4-6 Weeks Goal Progress: Goal Met Goal 3:: Patient will SLS for 30 sec without LOB Goal Time Frame: 4-6 Weeks Goal Progress: Goal Met Goal 4:: Patient will asc/desc 8 stairs recip with no HR and a normalized p attern Goal Time Frame: 4-6 Weeks Goal Progress: Progressing Goal 5:: Patient will report 80% improvement Goal Time Frame: 4-6 Weeks Goal Progress: Progressing Goal 6:: Increase R ankle strength to be 90% equal to L ankle strength to aid with recreational activities. Goal Progress: New goal Anticipated Interventions Anticipated Interventions Patient/Client Instruction: Educate patient on: Benefits of Fitness Program Therapeutic Exercise to Include: Strength training, Endurance training, Balance training, Coordination, Agility training, Body mechanics, Postural training, Flexibilty training, Gait and locomotor training, Neuromotor development, Active ROM and Dynamic Lumbar Stabilization For the Purpose of:: To improve muscle performance and motor function Functional Training to Include: Gait training Manual Therapy Techniques to Include: Soft tissue mobilization TENS: Yes Cryotherapy (ice pack, ice massage): Yes Thermo therapy (hot pack): Yes Ultrasound (thermal/non thermal): No Re-Evaluation Ending Re-evaluation ending: Please do not hesitate to contact me at [phone] by phone or if you have questions or concerns regarding this new plan of care! Sincerely, Huy King, PT, ATC
--- NOTE | 2025-03-08 09:42 | HP.PTREVAL ---
Re-Evaluation Intro: Dr. 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 Please see the progress note below for an update on the physical therapy plan of care! Subjective Subjective: I am getting a lot better, but I still feel weak and I swell a lot Objective Objective/Function: R ankle pain ranges between 1-3/10 R ankle DF ROM: 7 degrees R ankle strength: DF= 17 (L= 47), PF= 37 (L= 66) #F Pt continues to lack functional strength and ROM at this time Plan Plan Plan: 03/08/25- Continue to focus on R ankle strength, balance, and ROM at this time Balance/Gait/Functional tests Balance/Special Test Scores Lower Extremity Functional Score: 59 Goals Goals Goal 1:: Patient will be I with HEP and progression Goal Time Frame: 4-6 Weeks Goal Progress: Goal Met Goal 2:: Patient will ambulate >150 feet with a normalized gait pattern Goal Time Frame: 4-6 Weeks Goal Progress: Goal Met Goal 3:: Patient will SLS for 30 sec without LOB Goal Time Frame: 4-6 Weeks Goal Progress: Goal Met Goal 4:: Patient will asc/desc 8 stairs recip with no HR and a normalized pattern Goal Time Frame: 4-6 Weeks Goal Progress: Progressing Goal 5:: Patient will report 80% improvement Goal Time Frame: 4-6 Weeks Goal Progress: Progressing Goal 6:: Increase R ankle strength to be 90% equal to L ankle strength to aid with recreational activities. Goal Progress: New goal Anticipated Interventions Anticipated Interventions Patient/Client Instruction: Educate patient on: Benefits of Fitness Program Therapeutic Exercise to Include: Strength training, Endurance training, Balance training, Coordination, Agility training, Body mechanics, Postural training, Flexibilty training, Gait and locomotor training, Neuromotor development, Active ROM and Dynamic Lumbar Stabilization For the Purpose of:: To improve muscle performance and motor function Functional Training to Include: Gait training Manual Therapy Techniques to Include: Soft tissue mobilization TENS: Yes Cryotherapy (ice pack, ice massage): Yes Thermo therapy (hot pack): Yes Ultrasound (thermal/non thermal): No Re-Evaluation Ending Re-evaluation ending: Please do not hesitate to contact me at [phone] by phone or if you have questions or concerns regarding this new plan of care! Sincerely, Huy King, PT, ATC
--- NOTE | 2025-04-08 07:28 | HP.PTDCSUM ---
Discharge Summary D/C summary: It has been my pleasure to treat RC DICKERSON referred by Dr. 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 Discharge Date: Please see the following information for a summary of their discharge status. Subjective Subjective: I am getting better, but I still cant run, and I still have pain with stairs. Pain Right Ankle: Pain Intensity (Out of 10): 0 Overall Improvement % Improvement: 80 Objective Objective/Function: R ankle pain 0-2/10 MMT: R ankle DF= 29 (L= 41), PF= 55 (L= 61), ever= 21 (L= 46) Stairs: Pt is able to reiprocate 10 stairs with no handrail Single leg hop test L= 87 cm, R= 62 cm Goals Goal 1:: Patient will be I with HEP and progression Goal Progress: Goal Met Goal 2:: Patient will ambulate >150 feet with a normalized gait pattern Goal Progress: Goal Met Goal 3:: R single leg hop will equal 90% of L single leg hop to aid with return to sport Goal Progress: New goal Goal 4:: Patient will asc/desc 8 stairs recip with no HR and a normalized pattern Goal Progress: Goal Met Goal 5:: Patient will report 80% improvement Goal Progress: Goal Met Goal 6:: Increase R ankle strength to be 90% equal to L ankle strength to aid with recreational activities. Goal Progress: Progressing Plan Plan: 04/08/25- Continue to focus on R ankle strengthening, balance, and ROM at this time. Add some sport specific training for pickle ball. D/C Information d/c sentence: If there are questions or concerns regarding this patient's physical therapy, please feel free to call me at [phone]. Thank you for the referral of this patient. Sincerely, Huy King, PT, ATC Balance/Gait/Functional tests Balance/Special Test Scores Lower Extremity Functional Score: 67 Improvement % Improvement: 80
--- NOTE | 2025-04-08 08:42 | HP.PTREVAL ---
Re-Evaluation Intro: Dr. 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 Please see the progress note below for an update on the physical therapy plan of care! Subjective Subjective: I am getting better, but I still cant run, and I still have pain with stairs. Objective Objective/Function: R ankle pain 0-2/10 MMT: R ankle DF= 29 (L= 41), PF= 55 (L= 61), ever= 21 (L= 46) Stairs: Pt is able to reiprocate 10 stairs with no handrail Single leg hop test L= 87 cm, R= 62 cm Plan Plan Plan: 04/08/25- Continue to focus on R ankle strengthening, balance, and ROM at this time. Add some sport specific training for pickle ball. Balance/Gait/Functional tests Balance/Special Test Scores Lower Extremity Functional Score: 67 Goals Goals Goal 1:: Patient will be I with HEP and progression Goal Time Frame: 4-6 Weeks Goal Progress: Goal Met Goal 2:: Patient will ambulate >150 feet with a normalized gait pattern Goal Time Frame: 4-6 Weeks Goal Progress: Goal Met Goal 3:: R single leg hop will equal 90% of L single leg hop to aid with return to sport Goal Time Frame: 4-6 Weeks Goal Progress: New goal Goal 4:: Patient will asc/desc 8 stairs recip with no HR and a normalized pattern Goal Time Frame: 4-6 Weeks Goal Progress: Goal Met Goal 5:: Patient will report 80% improvement Goal Time Frame: 4-6 Weeks Goal Progress: Goal Met Goal 6:: Increase R ankle strength to be 90% equal to L ankle strength to aid with recreational activities. Goal Time Frame: 4-6 Weeks Goal Progress: Progressing Anticipated Interventions Anticipated Interventions Patient/Client Instruction: Educate patient on: Benefits of Fitness Program Therapeutic Exercise to Include: Strength training, Endurance training, Balance training, Coordination, Agility training, Body mechanics, Postural training, Flexibilty training, Gait and locomotor training, Neuromotor development, Active ROM and Dynamic Lumbar Stabilization For the Purpose of:: To improve muscle performance and motor function Functional Training to Include: Gait training Manual Therapy Techniques to Include: Soft tissue mobilization TENS: Yes Cryotherapy (ice pack, ice massage): Yes Thermo therapy (hot pack): Yes Ultrasound (thermal/non thermal): No Re-Evaluation Ending Re-evaluation ending: Please do not hesitate to contact me at [phone] by phone or if you have questions or concerns regarding this new plan of care! Sincerely, Huy King, PT, ATC
--- NOTE | 2025-05-06 07:29 | HP.PTREVAL ---
Re-Evaluation Intro: Dr. 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 Please see the progress note below for an update on the physical therapy plan of care! Subjective Subjective: Pt reports she is doing well. Objective Objective/Function: R ankle pain 1-08/02 MMT: L ankle DF= 31, PF= 36, Ever= 36 #F; R ankle DF= 36, PF= 36, Ever= 26 #F Single leg hop: L= 84, R= 67 cm (80%) Pt is progressing well with pain and strength. Pt still lacks functional mobility and strength at this time that would endanger her for re-injury with return to sport Plan Plan Plan: 05/06/25- Continue with sport functional activities at this time Balance/Gait/Functional tests Balance/Special Test Scores Lower Extremity Functional Score: 67 Goals Goals Goal 1:: Patient will be I with HEP and progression Goal Time Frame: 4-6 Weeks Goal Progress: Goal Met Goal 2:: Patient will ambulate >150 feet with a normalized gait pattern Goal Time Frame: 4-6 Weeks Goal Progress: Goal Met Goal 3:: R single leg hop will equal 90% of L single leg hop to aid with return to sport Goal Time Frame: 4-6 Weeks Goal Progress: New goal Goal 4:: Patient will asc/desc 8 stairs recip with no HR and a normalized pattern Goal Time Frame: 4-6 Weeks Goal Progress: Goal Met Goal 5:: Patient will report 80% improvement Goal Time Frame: 4-6 Weeks Goal Progress: Goal Met Goal 6:: Increase R ankle strength to be 90% equal to L ankle strength to aid with recreational activities. Goal Time Frame: 4-6 Weeks Goal Progress: Progressing Anticipated Interventions Anticipated Interventions Patient/Client Instruction: Educate patient on: Benefits of Fitness Program Therapeutic Exercise to Include: Strength training, Endurance training, Balance training, Coordination, Agility training, Body mechanics, Postural training, Flexibilty training, Gait and locomotor training, Neuromotor development, Active ROM and Dynamic Lumbar Stabilization For the Purpose of:: To improve muscle performance and motor function Functional Training to Include: Gait training Manual Therapy Techniques to Include: Soft tissue mobilization TENS: Yes Cryotherapy (ice pack, ice massage): Yes Thermo therapy (hot pack): Yes Ultrasound (thermal/non thermal): No Re-Evaluation Ending Re-evaluation ending: Please do not hesitate to contact me at [phone] by phone or if you have questions or concerns regarding this new plan of care! Sincerely, Huy King, PT, ATC
--- NOTE | 2025-06-03 07:24 | HP.PTDCSUM ---
Discharge Summary D/C summary: It has been my pleasure to treat RC DICKERSON referred by Dr. 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 Discharge Date: Please see the following information for a summary of their discharge status. Subjective Subjective: Pt reports she has no limitations at this time. Pain Right Ankle: Pain Intensity (Out of 10): 0 Overall Improvement % Improvement: 95 Objective Objective/Function: R ankle pain is 0/10 stairs are normalized now. Pt uses no handrails and reciprocates stairs. MMT: R ankle DF= 46, PF= 63; L ankle DF= 55, PF= 61 #F single leg hop: L= 79, R= 79 cm Pt is I with HEP. Rx goals achieved Goals Goal 1:: Patient will be I with HEP and progression Goal Progress: Goal Met Goal 2:: Patient will ambulate >150 feet with a normalized gait pattern Goal Progress: Goal Met Goal 3:: R single leg hop will equal 90% of L single leg hop to aid with return to sport Goal Progress: New goal Goal 4:: Patient will asc/desc 8 stairs recip with no HR and a normalized pattern Goal Progress: Goal Met Goal 5:: Patient will report 80% improvement Goal Progress: Goal Met Goal 6:: Increase R ankle strength to be 90% equal to L ankle strength to aid with recreational activities. Goal Progress: Progressing Plan Plan: Discharge to HEP D/C Information d/c sentence: If there are questions or concerns regarding this patient's physical therapy, please feel free to call me at [phone]. Thank you for the referral of this patient. Sincerely, Huy King, PT, ATC Balance/Gait/Functional tests Balance/Special Test Scores Lower Extremity Functional Score: 79 Improvement % Improvement: 95
== END 2025-06-03 19:00 | disposition home or self-care (01) ==
LOC: PT 07:00
PROVIDERS: PCP Nurse Practitioner; Referring Provider Podiatrist Foot & Ankle Surgery; Visit Provider Podiatrist Foot & Ankle Surgery
DX: S93.491D Sprain of other ligament of right ankle, subsequent encounter (principal)
CPT/HCPCS: 97110; 97162; 97530